=== PATIENT | female | born 1950 | race Caucasian/White ===

== ENCOUNTER 2016-10-12 21:13 | Observation (INO) | payer BC ==
[2016-10-12] MEDS ORDERED: PREVACID30 M2 PO (21:26)
[2016-10-12] MEDS ORDERED: ASPIRIN81 M1 PO (21:27)
[2016-10-12] MEDS ORDERED: PREMARIN0.3 MG/TAB PO (21:27)
[2016-10-12] MEDS ORDERED: CITRACAL PO (21:27)
[2016-10-12] MEDS ORDERED: [UNRECOGNIZED DRUG - OTHER] PO (21:27)
[2016-10-12 21:57] LABS: BASO % 0.3 % (0-2); EOS % 8.1 % (0-7); EOSINOPHIL ABSOLUTE COUNT 0.6 tho/cmm (0.0-0.7); HCT-HEMATOCRIT 41.4 % (34.0-49.0); HGB-HEMOGLOBIN 14.4 gm/dl (12.0-15.5); IMMATURE GRANULOCYTES ABSOLUTE 0.01 tho/cmm (0-0.03); IMMATURE GRANULOCYTES PERCENT 0.1 % (0-0.3); LYMPH % 39.3 % (20-45); LYMPH ABSOLUTE COUNT 2.7 tho/cmm (0.8-4.5); MCH (MEAN CORPUSCULAR HGB) 30.7 pg (28.0-32.0); MCHC MEAN CORPUSCULAR HGB CONC 34.8 % (32.0-36.0); MCV (MEAN CELL VOLUME) 88.3 fl (82.0-96.0); MEAN PLATELET VOLUME 9.2 cmc (9.4-12.4); MONO % 6.4 % (0-12); MONOCYTE ABSOLUTE COUNT 0.4 tho/cmm (0.0-1.2); NEUTROPHIL ABSOLUTE COUNT 3.2 tho/cmm (1.6-8.0); NEUTROPHIL-AUTOMATED 3.2 tho/cmm (1.6-8.0); NEUTROPHILS % 45.8 % (40-80); PLATELET COUNT 305 tho/cmm (150-450); RED BLOOD COUNT 4.69 mil/cmm (4.00-5.20); RED CELL DISTRIBUTION WIDTH 13.2 % (12.4-16.4); WHITE BLOOD COUNT 6.9 tho/cmm (4.0-10.0)
[2016-10-12 22:16] LABS: ANION GAP 12 mmol/L (0-20); BLOOD UREA NITROGEN 16 mg/dl (6-24); CALCIUM 9.3 mg/dl (8.5-10.5); CARBON DIOXIDE-VENOUS 28 mmol/L (22-32); CHLORIDE 105 mmol/l (96-110); CREATININE 0.88 mg/dl (0.50-1.10); GLUCOSE 99 mg/dL (70-110); MAGNESIUM 2.2 mg/dl (1.3-2.6); POTASSIUM 3.8 mmol/L (3.7-5.1); SODIUM 141 mmol/L (135-145); eGFR VALUE FOR BLACK 80 mL/Min
[2016-10-13] MEDS ORDERED: VITAMIN D31000 UNI3 PO (01:23)
[2016-10-13] MEDS ORDERED: OMEPRAZOLE40 M2 PO (01:23)
[2016-10-13] MEDS ORDERED: PROBIOTIC1 EA10 PO (01:23)
== END 2016-10-13 10:25 ==
LOC: EDMED 21:13 → EMR2 23:30 → CAR1 10-13 00:15
PROVIDERS: Emergency Medicine; Nurse Practitioner Family; ADMIT Internal Medicine Cardiovascular Disease
DX: R07.89 Other chest pain (principal); I07.1 Rheumatic tricuspid insufficiency; K21.9 Gastro-esophageal reflux disease without esophagitis; Z90.49 Acquired absence of other specified parts of digestive tract; Z90.710 Acquired absence of both cervix and uterus; Z79.82 Long term (current) use of aspirin; Z79.899 Other long term (current) drug therapy
CPT/HCPCS: A9500; G0378; J7030